=== PATIENT | female | born 1985 ===

== ENCOUNTER 2019-05-13 20:54 | Emergency (ER) | payer OTHER ==
--- NOTE | 2019-05-13 21:47 | Emergency Department Report ---
Blank Doc - Documentation Documentation: This is a 33-year-old female that presents with ETOH. Denies any SI/HI. This initial assessment/diagnostic orders/clinical plan/treatment(s) is/are subject to change based on patient's health status, clinical progression and re- assessment by fellow clinical providers in the ED. Further treatment and workup at subsequent clinical providers discretion. Patient/guardians urged not to elope from the ED as their condition may be serious if not clinically assessed and managed. Initial orders include: 1- Patient sent to MAIN ED for further evaluation and treatment. 2- labs 3- UA
[2019-05-13 22:13] LABS: Basophils # (Auto) 0.1 K/mm3 (0.0-0.1); Basophils % (Auto) 1.2 % (0.0-1.8); Eosinophils # (Auto) 0.2 K/mm3 (0.0-0.4); Eosinophils % (Auto) 2.4 % (0.0-4.3); Hematocrit 39.6 % (30.3-42.9); Hemoglobin 13.5 gm/dl (10.1-14.3); Lymphocytes # (Auto) 1.9 K/mm3 (1.2-5.4); Lymphocytes % (Auto) 19.8 % (13.4-35.0); Mean Corpuscular HGB Conc 34 % (30-34); Mean Corpuscular Volume 105 fl (79-97); Monocytes # (Auto) 0.5 K/mm3 (0.0-0.8); Monocytes % (Auto) 5.5 % (0.0-7.3); Platelet Count 322 K/mm3 (140-440); Red Blood Count 3.79 M/mm3 (3.65-5.03); Red Cell Distribution Width 14.3 % (13.2-15.2)
[2019-05-13 22:23] LABS: INR 0.93 (0.87-1.13)
[2019-05-13 22:46] LABS: Alanine Aminotransferase 14 units/L (7-56); Albumin 4.5 g/dL (3.9-5); BUN/Creatinine Ratio 7; Blood Urea Nitrogen 5 mg/dL (7-17); Calcium 8.9 mg/dL (8.4-10.2); Hemolysis Index 6
[2019-05-14] MEDS ORDERED: MAGNESIUM SULFATE 2GM/50ML 2 GM/50 ML BAG IV ONE (05:09)
[2019-05-14] MEDS ORDERED: VITAMIN B-1 100 MG, FOLVITE 1 MG, INFUVITE 10 ML in NACL 0.9% 1000 ML 1,000 ML IV ONE (05:09)
[2019-05-14 06:43] VITALS: BP 124/83
--- NOTE | 2019-05-14 07:03 | Emergency Department Report ---
ED Alcohol HPI - General Chief Complaint: Alcohol Stated Complaint: ETOH Time Seen by Provider: 05/13/19 21:46 Source: patient Mode of arrival: Ambulatory Limitations: No Limitations - History of Present Illness Initial Comments: Melodie is a 33 yo female who presents to the ED from [facility]. She desires medical clearance in order to [facility] the [facility]. She has been observed in the ED for 10 hours overnight. She needed a place to sleep while intoxicated. At this moment, she is sober. She does not have any needs or concerns. She desires to be discharged. My colleague ordered IVF and supportive medication, banana bag. Melodie declined these interventions. NO SI/HI MD Complaint: alcohol intoxication Last Drink: just DRIVE IN [employer] Chronic Alcohol Use: Yes Recent Trauma: No Associated Symptoms: denies other symptoms Treatments Prior to Arrival: none - Related Data Allergies Allergy/AdvReac Type Severity Reaction Status Date / Time No Known Allergies Allergy Verified 05/13/19 21:02 ED Review of Systems ROS: Stated complaint: ETOH Other details as noted in HPI Comment: All other systems reviewed and negative Constitutional: denies: fever, malaise Respiratory: denies: cough Cardiovascular: denies: chest pain ED Past Medical Hx - Past Medical History Previous Medical History?: Yes Additional medical history: Alcoholism - Surgical History Past Surgical History?: No - Social History Smoking Status: Current Every Day Smoker Substance Use Type: Alcohol ED Physical Exam - General Limitations: No Limitations General appearance: alert, in no apparent distress - Head Head exam: Present: atraumatic, normocephalic - Eye Eye exam: Present: normal appearance - ENT ENT exam: Present: mucous membranes moist - Neck Neck exam: Present: normal inspection, full ROM - Respiratory Respiratory exam: Present: normal lung sounds bilaterally. Absent: respiratory distress, wheezes, rales, rhonchi - Cardiovascular Cardiovascular Exam: Present: regular rate, normal rhythm, normal heart sounds. Absent: systolic murmur, diastolic murmur, rubs, gallop - GI/Abdominal GI/Abdominal exam: Present: soft, normal bowel sounds. Absent: distended, tenderness, guarding, rebound - Extremities Exam Extremities exam: Present: normal inspection - Back Exam Back exam: Present: normal inspection - Neurological Exam Neurological exam: Present: alert, oriented X3 - Psychiatric Psychiatric exam: Present: normal affect, normal mood - Skin Skin exam: Present: warm, dry, intact, normal color. Absent: rash ED Course Vital Signs 05/13/19 05/14/19 05/14/19 21:07 05:43 05:45 Temperature 98.0 F Pulse Rate 103 H 89 88 Respiratory 18 15 12 Rate Blood Pressure 139/91 Blood Pressure [Left] O2 Sat by Pulse 96 98 98 Oximetry 05/14/19 05/14/19 06:01 06:42 Temperature 97.9 F Pulse Rate Respiratory 13 19 Rate Blood Pressure Blood Pressure 124/83 [Left] O2 Sat by Pulse 99 98 Oximetry ED Medical Decision Making - Lab Data Result diagrams: 05/13/19 21:53 05/13/19 21:53 Laboratory Results - last 24 hr 05/13/19 05/13/19 05/13/19 21:53 21:53 21:53 WBC 9.6 RBC 3.79 Hgb 13.5 Hct 39.6 MCV 105 H MCH 36 H MCHC 34 RDW 14.3 Plt Count 322 Lymph % (Auto) 19.8 [place] % (Auto) 5.5 Eos % (Auto) 2.4 Baso % (Auto) 1.2 Lymph # 1.9 [place] # 0.5 Eos # 0.2 Baso # 0.1 Seg Neutrophils % 71.1 H Seg Neutrophils # 6.8 PT 12.2 INR 0.93 APTT 29.0 Sodium 139 Potassium 3.8 Chloride 105.2 Carbon Dioxide 18 L Anion Gap 20 BUN 5 L Creatinine 0.7 Estimated GFR > 60 BUN/Creatinine Ratio 7 Glucose 125 H Calcium 8.9 Total Bilirubin < 0.20 AST 15 ALT 14 Alkaline Phosphatase 68 Total Protein 7.9 Albumin 4.5 Albumin/Globulin Ratio 1.3 Plasma/Serum Alcohol 05/13/19 21:53 WBC RBC Hgb Hct MCV MCH MCHC RDW Plt Count Lymph % (Auto) [place] % (Auto) Eos % (Auto) Baso % (Auto) Lymph # [place] # Eos # Baso # Seg Neutrophils % Seg Neutrophils # PT INR APTT Sodium Potassium Chloride Carbon Dioxide Anion Gap BUN Creatinine Estimated GFR BUN/Creatinine Ratio Glucose Calcium Total Bilirubin AST ALT Alkaline Phosphatase Total Protein Albumin Albumin/Globulin Ratio Plasma/Serum Alcohol 0.28 H - Medical Decision Making Melodie has history of alcoholism. Diagnosis is alcohol intoxication. She is currently sober. No suicidal homicidal ideation. She has resources at the [facility] for alcohol dependence. dc'd home Critical care attestation.: If time is entered above; I have spent that time in minutes in the direct care of this critically ill patient, excluding procedure time. ED Disposition Clinical Impression: Alcohol intoxication, Alcohol intoxication delirium Disposition: [id number] TO HOME OR SELFCARE Is pt being admited?: No Does the pt Need Aspirin: No Condition: Stable Instructions: Alcohol Intoxication (ED), Abuse of Alcohol (ED) [facility]
== END 2019-05-14 07:10 | disposition home or self-care (01) ==
LOC: ED 20:54
DX: F10.121 Alcohol abuse with intoxication delirium (principal); F17.200 Nicotine dependence, unspecified, uncomplicated
CPT/HCPCS: 36415; 80053; 85025; 85610; 85730; G0480; J3411; J3475; J7030; 80320